=== PATIENT | female | born 1980 | race Caucasian/White ===

== ENCOUNTER → 2020-09-09 | Outpatient (CLI) | payer OTHER ==
--- NOTE | 2020-09-09 09:18 | Diagnostic Imaging Report ---
PROCEDURE: US Gallbladder. TECHNIQUE: Multiple real-time grayscale images were obtained over the right upper quadrant in various projections. INDICATION: Right upper quadrant pain The gallbladder appeared normal. No stone or sludge. Liver parenchyma normal. The portal vein patent and showed a normal hepatopetal directional flow. No bile duct dilatation. Pancreas is obscured from visualization. The aorta nonaneurysmal. The unobstructed right kidney measured 10 cm and appeared normal. IMPRESSION: No pathological finding demonstrated at right upper quadrant ultrasound. Dictated by: Dictated on workstation # [id number]
== END ==
LOC: RAD 08:00
PROVIDERS: ATTEND Surgery
DX: R10.11 Right upper quadrant pain (principal)
CPT/HCPCS: 76705

== ENCOUNTER 2020-09-19 05:41 | Outpatient (CLI) | payer OTHER ==
[~2020-09-19] VITALS: Ht 154.9 cm; Wt 94.7 kg
[2020-09-19] MEDS ORDERED: HYDR25TA4 PO (14:43)
[2020-09-19] MEDS ORDERED: NOVOLOG PUMP (14:43)
[2020-09-19] MEDS ORDERED: ATOR10TA66 PO (14:43)
== END 2020-09-19 15:46 | disposition home or self-care (01) ==
LOC: PREOP 05:41
PROVIDERS: ATTEND Surgery
DX: Z01.818 Encounter for other preprocedural examination (principal)

== ENCOUNTER 2020-09-26 07:55 | Day surgery (SDC) | payer OTHER ==
[~2020-09-26] VITALS: Ht 154.9 cm; Wt 94.7 kg
[~2020-09-26 07:55] MED LIST: ATOR10TA66 PO; HYDR25TA4 PO; NOVOLOG PUMP
[2020-09-26] MEDS ORDERED: LACTATED RINGERS 1,000 ML IV ONE (08:01)
[2020-09-26] MEDS ORDERED: LACTATED RINGERS 1,000 ML IV STA (08:03)
[2020-09-26 08:10] VITALS: BP 137/81
[2020-09-26] MEDS ORDERED: MIDAZOLAM 2 MG/2 ML (VERSED) VIAL ONE (08:11)
[2020-09-26] MEDS ORDERED: PROPOFOL INJECTION 50 ML IV ONE (08:11)
[2020-09-26] MEDS ORDERED: HURRICAINE EXT TUBE (BENZOCAINE) XX PRN (08:15)
--- NOTE | 2020-09-26 08:17 | Progress Note-Pre Operative ---
Pre-Operative Progress Note H&P Reviewed The H&P was reviewed, patient examined and no changes noted. Time Seen by Provider: 08:14 Date H&P Reviewed: Sep 26, 2020 Time H&P Reviewed: 08:14 Pre-Operative Diagnosis: RUQ pain, Abd bloating DENNIS MALDONADO DO Sep 26, 2020 08:17
--- NOTE | 2020-09-26 08:31 | Progress Note-Post Operative ---
Post-Operative Progess Note Surgeon (s)/Surgery Scheduler (s) Surgeon DENNIS MALDONADO DO Surgery Scheduler: none Pre-Operative Diagnosis RUQ pain, Abd bloating Post-Operative Diagnosis Gastritis Hiatal Hernia Esophagitis Procedure & Operative Findings Date of Procedure 09/26/20 Procedure Performed/Findings EGD with bx PROCEDURE NOTE: After informed consent was obtained, the patient was brought to the endoscopy suite, placed in bed in left lateral decubitus position. She was administered IV sedation by the CABLE TESTER who then monitored vitals the entire time, heart rate, blood pressure and pulse ox and the scope was inserted down the mouth through the esophagus into the stomach. On the way down, noted some mild esophagitis, took a picture, pushed into the stomach, pushed past the antrum into the duodenum. Duodenum looked good. Pt had some gastritis and pictures were taken of the erythema in antrum. Pulled back and did a biopsy of antrum, then retroflexed the scope, saw hiatal hernia, took a picture of this and then elected to do a biopsy of the body of the stomach. Finally pulled the scope into the GE junction, took another picture of the hiatal hernia and then did a biopsy of the GE junction. Pushed the scope back into the stomach, suctioned all the air out of the stomach. At this point pulled the scope up the esophagus and out the mouth. The patient tolerated the procedure, and she recovered in endoscopy suite. Anesthesia Type IV sedation by CABLE TESTER Estimated Blood Loss Estimated blood loss (mL): scant Specimens/Packing Specimens Removed antral bx body of stomach bx GE jxn bx DENNIS MALDONADO DO Sep 26, 2020 08:31
--- NOTE | 2020-09-26 08:32 | Endoscopy Discharge Instruct ---
Endo Procedure/Findings Findings 1.: Gastritis 2.: Hiatal Hernia 3.: Other Findings (Esophagitis) Discharge Instructions - Activity: You might feel a little sleepy until tomorrow. This is due to the medicine you received to relax you. Until tomorrow, you should: NOT drive a car, operate machinery or power tools. NOT drink any alcoholic beverages. NOT make any important decisions or sign importortant papers. Do not return to work until tomorrow, unless otherwise instructed. Resume previous activities tomorrow. Diet: Start by taking liquids. If you tolerate liquids, advance to solid food. 1.: EGD in 1 year Notify Physician - If you experience excessive bleeding, unusual abdominal pain, fever, or chest pain, contact your doctor immediately. DENNIS MALDONADO DO Sep 26, 2020 08:32
[2020-09-26 08:35] VITALS: BP 100/60
[2020-09-26 08:40] VITALS: BP 113/85
[2020-09-26 08:45] VITALS: BP 105/59
[2020-09-26 09:10] VITALS: BP 111/69
[2020-09-26 09:20] VITALS: BP 111/69
--- NOTE | 2020-09-26 12:23 | Anesthesia-General Post-Op ---
MAC Patient Condition Mental Status/LOC: Same as Preop Cardiovascular: Satisfactory Nausea/Vomiting: Absent Respiratory: Satisfactory Pain: Controlled Complications: Absent Post Op Complications Complications None Follow Up Care/Instructions Patient Instructions None needed. Anesthesiology Discharge Order Discharge Order Patient is doing well, no complaints, stable vital signs, no apparent adverse anesthesia problems. No complications reported per nursing. MILAGRO MERCADO CRNA Sep 26, 2020 12:23
== END 2020-09-26 09:20 | disposition home or self-care (01) ==
LOC: ENDO 07:55
PROVIDERS: ATTEND Surgery
DX: K44.9 Diaphragmatic hernia without obstruction or gangrene (principal); K29.50 Unspecified chronic gastritis without bleeding; D72.10 Eosinophilia, unspecified; I10 Essential (primary) hypertension; K21.00 Gastro-esophageal reflux disease with esophagitis, without bleeding; E11.9 Type 2 diabetes mellitus without complications; E66.01 Morbid (severe) obesity due to excess calories; E78.00 Pure hypercholesterolemia, unspecified; Z79.899 Other long term (current) drug therapy; Z68.39 Body mass index [BMI] 39.0-39.9, adult; Z79.4 Long term (current) use of insulin; Z80.9 Family history of malignant neoplasm, unspecified; Z87.891 Personal history of nicotine dependence
CPT/HCPCS: 88305; 88342